=== PATIENT | female | born 1995 | race Caucasian/White ===

== ENCOUNTER 2024-07-17 17:53 | Emergency (ER) | payer OTHER, BC, SELFPAY ==
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
--- NOTE | ~2024-07-17 | CT_ITS ---
EXAMINATION: CT FACIAL BONES WITHOUT CONTRAST CLINICAL INFORMATION: Trauma, right eye COMPARISON: None available. TECHNIQUE: Multidetector CT acquisitions of the maxillofacial region without administration of intravenous contrast. This CT examination was performed using dose optimization techniques as appropriate, variously including the following: *Automated exposure control *Adjustment of mA and/or kV according to patient size (this includes techniques or standardized protocols for targeted exams where dose is matched to indication/reason for exam; i.e. extremities or head) *Use of iterative reconstruction technique DLP: 245 mGy-cm FINDINGS: Right inferior orbital wall blowout fracture with herniation of the orbital fat. There is also slight herniation of the inferior rectus muscle through the defect however there is no evidence of entrapment at this time. There is asymmetric thickening of the superior and medial recti muscles likely reflecting intramuscular hematoma. The globe is intact. There is right proptosis. Significant periorbital soft tissue swelling is seen extending along the right nasal bridge. Comminuted fracture of the anterior and medial fuentes of the right maxillary sinus with complete opacification and hemosinus. There is also small amount of gas within the sinus. Fracture extends to involve the frontal process of the maxillary bone. The mandible, pterygoid plates, nasal bones, and zygomatic arches are intact. CT/CT facial bones wo IV con IMPRESSION: 1. Right inferior orbital wall blowout fracture with herniation of the orbital fat and slight herniation of the inferior rectus muscle through the defect. There is no evidence of muscular entrapment at this time. 2. Asymmetric thickening of the superior and medial recti muscles likely reflecting intramuscular hematoma. 3. Right proptosis with significant periorbital soft tissue contusion. 4. Comminuted fracture of the anterior and medial fuentes of the right maxillary sinus extending to the frontal process of the maxillary bone. Right maxillary hemosinus. Electronically signed by: Mp Johnson MD 07/17/2024 09:55 PM EST
[2024-07-17 18:01] VITALS: BP 131/79; PULSE 65; O2SAT 96; BMI 25.0
[2024-07-17 18:04] VITALS: BP 137/83; PULSE 65; RESP 16; TEMP 36.8; O2SAT 97
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
[2024-07-17 18:27] LABS: MANUAL DIFF FLAG NO
[2024-07-17 18:28] LABS: Basophils Absolute Auto 0.1 X10*3/uL (0.0-0.2); Basophils Percent Auto 0.5 % (0-2); Eosinophils Absolute Auto 0.1 X10*3/uL (0.0-0.4); Eosinophils Percent Auto 0.5 % (0-4); Hematocrit 31.1 % (37.0-47.0); Hemoglobin 10.9 g/dl (12.0-16.0); Imm Gran Abs Auto 0.02 X10*3/uL (0.00-0.03); Imm Gran Pct Auto 0.2 % (0.0-0.4); Lymphocytes Absolute Auto 4.5 X10*3/uL (1.2-4.9); Lymphocytes Percent Auto 40.3 % (20-40); Mean Corpuscular Hemoglobin 30.8 pg (27.0-33.0); Mean Corpuscular Volume 87.9 fL (80.0-98.0); Mean Platelet Volume 9.6 fL (9.4-12.3); Monocytes Absolute Auto 0.4 X10*3/uL (0.1-1.2); Monocytes Percent Auto 3.4 % (2-11); Neutrophils Absolute Auto 6.1 x10*3/uL (2.0-8.3); Neutrophils Percent Auto 55.1 % (45-73); Platelet Count 280 X10*3/uL (160-400); Red Blood Count 3.54 X10*6/uL (4.20-5.50); Red Cell Distribution Width 11.9 % (11.0-16.0); White Blood Count 11.1 X10*3/uL (4.8-10.8)
[2024-07-17] MEDS: Ketorolac Tromethamine 15 MG/ML VIAL IVPUSH (18:28)
[2024-07-17] MEDS: ondansetron HCL 4 MG/2 ML VIAL IVPUSH (18:28)
[2024-07-17] MEDS: 0.9 % Sodium Chloride 1,000 ML 999 ML IV (18:29)
[2024-07-17 18:53] LABS: Alanine Aminotransferase 22 U/L (0-31); Albumin Level 4.4 g/dL (3.5-5.0); Alkaline Phosphatase 34 U/L (39-117); Anion Gap 11 (12-20); Aspartate Amino Transferase 26 U/L (5-31); Bilirubin Total 0.6 mg/dL (0.0-1.0); Blood Urea Nitrogen 15 mg/dL (9-16); Calcium 9.5 mg/dL (8.4-10.2); Carbon Dioxide 25 mmol/L (22-29); Chloride 105 mmol/L (96-108); Creatinine Clr Calc Pharmacy 81.4; Estimated Glomerular Filt Rate > 60; Glucose Random 119 mg/dL (60-115); HCG Quantitative < 2 mIU/mL; Magnesium 1.9 mg/dL (1.6-2.6); Potassium 3.3 mmol/L (3.3-5.1); Sodium 138 mmol/L (135-145); Total Protein 6.8 g/dL (6.5-8.0)
[2024-07-17 19:59] VITALS: BP 123/64; PULSE 61; RESP 16; TEMP 36.6; O2SAT 98
--- NOTE | 2024-07-17 21:14 | PC.NURSE ---
Pt requesting saltine crackers and drink. Ct results not available at this time. MLP made aware and is ok with pt eating saltine crackers.
[2024-07-17] MEDS: Midazolam HCl/PF 2 MG/2 ML VIAL 4 MG IVPUSH (22:19)
[2024-07-17] MEDS: Tetracaine HCl 0.5% Oph Sol 5 ML DROPS 3 DROP EYE-RIGHT (22:21)
[2024-07-17] MEDS: Fluorescein Sodium STRIP 1 STRIP EYE-RIGHT (22:21)
[2024-07-17] MEDS: Erythromycin Base 0.5% Oph Oin 1 GM TUBE 1 CM EYE-RIGHT (22:51)
[2024-07-17] MEDS: ceFAZolin Sodium/Dextrose,Iso 2 GM/50 ML PIGGYBACK IV (22:51)
[2024-07-18] VITALS: BP 95/52; PULSE 73; RESP 16; TEMP 36.9; O2SAT 97
[2024-07-18 01:17] VITALS: BP 95/52; PULSE 73; RESP 16; TEMP 36.9; O2SAT 97
== END 2024-07-18 01:18 | disposition other institution (70) ==
PROVIDERS: Physician Assistant Medical; Emergency Provider Emergency Medicine Emergency Medical Services
DX: S02.31XB Fracture of orbital floor, right side, initial encounter for open fracture (principal); S02.40CB Maxillary fracture, right side, initial encounter for open fracture; S05.01XA Injury of conjunctiva and corneal abrasion without foreign body, right eye, initial encounter; V43.52XA Car driver injured in collision with other type car in traffic accident, initial encounter; Y93.89 Activity, other specified; Y92.414 Local residential or business street as the place of occurrence of the external cause; Y99.9 Unspecified external cause status
CPT/HCPCS: 36415; 70450; 70486; 72125; 80053; 83735; 84702; 85025; 96361; 96365; 96375; 99285; J0690; J1885; J2250; J2405